=== PATIENT | male | born 1970 | race Caucasian/White ===

== ENCOUNTER 2018-01-15 19:24 | Emergency (ER) | payer OTHER, MEDICARE ==
[2018-01-15 20:03] VITALS: BP 132/89
[2018-01-15] MEDS ORDERED: Sulfamethox/Trimethoprim DS 800/160* TAB PO ONE (20:33)
[2018-01-15] MEDS ORDERED: Tetan/Diph/Pertus SYR(Tdap)* 0.5 ML SYR(BOOSTRIX) use SYR IM ONE (20:36)
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
[2018-01-15] MEDS ORDERED: Ibuprofen TAB* 600 MG PO ONE (20:51)
--- NOTE | 2018-01-15 21:10 | RAD ---
INDICATION: Left shoulder injury COMPARISON: None TECHNIQUE: Routine frontal, Y and axial views were obtained. FINDINGS: There is moderate a.c. and glenohumeral osteoarthritis. There is no evidence of disc location or subluxation. The soft tissues are intact. IMPRESSION: MODERATE A.C. AND GLENOHUMERAL OSTEOARTHRITIS
== END 2018-01-15 21:43 | disposition home or self-care (01) ==
LOC: UCCORT 19:24
DX: M70.21 Olecranon bursitis, right elbow (principal); S46.009A Unspecified injury of muscle(s) and tendon(s) of the rotator cuff of unspecified shoulder, initial encounter; L03.113 Cellulitis of right upper limb; M13.819 Other specified arthritis, unspecified shoulder; M13.842 Other specified arthritis, left hand; M13.841 Other specified arthritis, right hand; E11.9 Type 2 diabetes mellitus without complications; Z79.82 Long term (current) use of aspirin; F17.290 Nicotine dependence, other tobacco product, uncomplicated; V19.9XXA Pedal cyclist (driver) (passenger) injured in unspecified traffic accident, initial encounter; Y92.9 Unspecified place or not applicable
CPT/HCPCS: 90471; 90715; 99213; A9270-GY; G0463